=== PATIENT | male | born 1955 ===

== ENCOUNTER 2017-08-05 13:23 | Emergency (ER) | payer OTHER ==
[2017-08-05 14:53] LABS: ABS Basophils 0 10^3/ul (0-0.2); ABS Eosinophils 0.1 10^3/ul (0-0.6); ABS Lymphocytes 2.6 10^3/ul (1.0-4.8); ABS Monocytes 0.6 10^3/ul (0-0.8); ABS Neutrophils 2.3 10^3/ul (1.5-7.7); ABS Nucleated RBC 0 10^3/ul; Eosinophil % 1.4 % (0-6); Hematocrit 43 % (42-52); Hemoglobin 14.3 g/dl (14.0-18.0); Lymphocyte % 46.3 % (25-47); Mean Corpuscular HGB Conc 33 g/dl (31-36); Mean Corpuscular Hemoglobin 31 pg (27-31); Mean Corpuscular Volume 92 fL (80-94); Mean Platelet Volume 8.2 um3 (7.4-10.4); Nucleated Red Blood Cells % 0.3; Platelet Count 226 10^3/ul (150-450); Red Blood Count 4.67 10^6/ul (4.0-5.4); Red Cell Distribution Width 14 % (10.5-15); White Blood Count 5.6 10^3/ul (3.5-10.8)
[2017-08-05 15:14] LABS: INR 0.92 (0.77-1.02)
[2017-08-05 15:34] LABS: EGFR Non-African American 83.4 (>60)
[2017-08-05 16:22] VITALS: BP 188/92
--- NOTE | 2017-08-05 16:26 | ED ---
Robin Echeverria Angela, scribed for Adam Ruiz on 08/05/17 at 1621 . Hypertension - HPI Summary HPI Summary: This pt is a 62 y/o male presenting to [facility] via EMS from [facility] for EKG changes and high blood pressure. Pt reports he gets his daily check up at around lunch time. Today he was noticed to have elevated blood pressure and EKG changes. Pt [facility]. Denies chest pain, headache, SOB, or any other complaints. PMHx includes IA, DM, HTN. Pt is currently on Lisinopril and another antihypertensive medication (unable to recall the name). He reports he has not taken his antihypertensive medication today. Pt states he had EKG and stress tests done at either [place] or [facility]. He is a former cocaine user. - History of Current Complaint Chief Complaint: EDHypertension Stated Complaint: HIGH BP Time Seen by Provider: 08/05/17 13:30 Hx Obtained From: Patient Onset/Duration: Started Hours Ago, Still Present Timing: Lasting Days Aggravating Factor(s): Nothing Alleviating Factor(s): Nothing Associated Signs & Symptoms: Negative - Allergies/Home Medications Home Medications: Home Medications Aspirin EC TAB* [Ecotrin EC Low Dose 81 MG*] 81 mg PO DAILY 08/05/17 [History Confirmed 08/05/17] Atorvastatin* [Lipitor*] 10 mg PO BEDTIME 08/05/17 [History Confirmed 08/05/17] Enalapril TAB* [Vasotec TAB*] 10 mg PO DAILY 08/05/17 [History Confirmed ] Insulin GLARGINE(*) [Lantus(*)] 33 units SUBCUT QPM 08/05/17 [History Confirmed 08/05/17] Sertraline* [Zoloft*] 25 mg PO QPM 08/05/17 [History Confirmed 08/05/17] Tamsulosin CAP* [Flomax CAP*] 0.4 mg PO DAILY 08/05/17 [History Confirmed ] amLODIPine TAB* [Norvasc 5 mg TAB*] 10 mg PO DAILY 08/05/17 [History Confirmed 08/05/17] metFORMIN* [Glucophage 500 MG TAB *] 500 mg PO BID 08/05/17 [History Confirmed 08/05/17] PMH/Surg Hx/FS Hx/Imm Hx Endocrine/Hematology History: Reports: Hx Diabetes Cardiovascular History: Reports: Hx Hypertension, Hx Myocardial Infarction Infectious Disease History: No Infectious Disease History: Reports: Hx Hepatitis - B and C Denies: Traveled Outside the [place] in Last 30 Days - Family History Known Family History: Negative: Blood Disorder - Social History Alcohol Use: None Alcohol Amount: Stopped drinking May Substance Use Type: Reports: Cocaine Substance Use Comment - Amount & Last Used: May Smoking Status (MU): Light Every Day Tobacco Smoker Review of Systems Negative: Fever, Chills Eyes: Negative ENT: Negative Cardiovascular: Other - hypertension Negative: Chest Pain Negative: Shortness Of Breath Negative: Abdominal Pain Genitourinary: Negative Musculoskeletal: Negative Skin: Negative Negative: Headache All Other Systems Reviewed And Are Negative: Yes Physical Exam - Summary Physical Exam Summary: Appearance: Well appearing, no pain distress Skin: warm, dry, reflects adequate perfusion Head/face: normal Eyes: EOMI, HELENA ENT: normal Neck: supple, nontender Respiratory: CTA, breath sounds present Cardiovascular: RRR, pulses symmetrical Abdomen: nontender, soft Bowel: present Musculoskeletal: normal, strength/ROM intact Neuro: normal, sensory motor intact, A&Ox3 Triage Information Reviewed: Yes Vital Signs On Initial Exam: Initial Vitals Temp Pulse Resp BP Pulse Ox 98.7 F 55 16 167/85 97 08/05/17 13:39 08/05/17 13:39 08/05/17 13:39 08/05/17 13:39 08/05/17 13:39 Vital Signs Reviewed: Yes Diagnostics - Vital Signs Vital Signs Temp Pulse Resp BP Pulse Ox 08/05/17 14:20 22 191/104 08/05/17 14:00 16 08/05/17 13:49 16 173/82 08/05/17 13:39 98.7 F 55 16 167/85 97 - Laboratory Lab Results: Lab Results 08/05/17 08/05/17 08/05/17 Range/Units 14:43 14:43 14:43 WBC 5.6 (3.5-10.8) 10^3/ul RBC 4.67 (4.0-5.4) 10^6/ul Hgb 14.3 (14.0-18.0) g/dl Hct 43 (42-52) % MCV 92 (80-94) fL MCH 31 (27-31) pg MCHC 33 (31-36) g/dl RDW 14 (10.5-15) % Plt Count 226 (150-450) 10^3/ul MPV 8.2 (7.4-10.4) um3 Neut % (Auto) 41.3 (38-83) % Lymph % (Auto) 46.3 (25-47) % [place] % (Auto) 10.4 H (0-7) % Eos % (Auto) 1.4 (0-6) % Baso % (Auto) 0.6 (0-2) % Absolute Neuts (auto) 2.3 (1.5-7.7) 10^3/ul Absolute Lymphs (auto) 2.6 (1.0-4.8) 10^3/ul Absolute Monos (auto) 0.6 (0-0.8) 10^3/ul Absolute Eos (auto) 0.1 (0-0.6) 10^3/ul Absolute Basos (auto) 0 (0-0.2) 10^3/ul Absolute Nucleated RBC 0 10^3/ul Nucleated RBC % 0.3 INR (Anticoag Therapy) (0.77-1.02) APTT (26.0-36.3) seconds Sodium 138 L (139-145) mmol/L Potassium 3.7 (3.5-5.0) mmol/L Chloride 104 (101-111) mmol/L Carbon Dioxide 27 (22-32) mmol/L Anion Gap 7 (2-11) mmol/L BUN 18 (6-24) mg/dL Creatinine 0.92 (0.67-1.17) mg/dL Est GFR ( Amer) 107.2 (>60) Est GFR (Non-Af Amer) 83.4 (>60) BUN/Creatinine Ratio 19.6 (8-20) Glucose 110 H (70-100) mg/dL Lactic Acid 1.1 (0.5-2.0) mmol/L Calcium 9.9 (8.6-10.3) mg/dL Total Bilirubin 0.50 (0.2-1.0) mg/dL AST 32 (13-39) U/L ALT 35 (7-52) U/L Alkaline Phosphatase 85 (34-104) U/L Troponin I 0.01 (<0.04) ng/mL Total Protein 7.3 (6.4-8.9) g/dL Albumin 3.9 (3.2-5.2) g/dL Globulin 3.4 (2-4) g/dL Albumin/Globulin Ratio 1.1 (1-3) 04//18 Range/Units 14:43 WBC (3.5-10.8) 10^3/ul RBC (4.0-5.4) 10^6/ul Hgb (14.0-18.0) g/dl Hct (42-52) % MCV (80-94) fL MCH (27-31) pg MCHC (31-36) g/dl RDW (10.5-15) % Plt Count (150-450) 10^3/ul MPV (7.4-10.4) um3 Neut % (Auto) (38-83) % Lymph % (Auto) (25-47) % [place] % (Auto) (0-7) % Eos % (Auto) (0-6) % Baso % (Auto) (0-2) % Absolute Neuts (auto) (1.5-7.7) 10^3/ul Absolute Lymphs (auto) (1.0-4.8) 10^3/ul Absolute Monos (auto) (0-0.8) 10^3/ul Absolute Eos (auto) (0-0.6) 10^3/ul Absolute Basos (auto) (0-0.2) 10^3/ul Absolute Nucleated RBC 10^3/ul Nucleated RBC % INR (Anticoag Therapy) 0.92 (0.77-1.02) APTT 37.4 H (26.0-36.3) seconds Sodium (139-145) mmol/L Potassium (3.5-5.0) mmol/L Chloride (101-111) mmol/L Carbon Dioxide (22-32) mmol/L Anion Gap (2-11) mmol/L BUN (6-24) mg/dL Creatinine (0.67-1.17) mg/dL Est GFR ( Amer) (>60) Est GFR (Non-Af Amer) (>60) BUN/Creatinine Ratio (8-20) Glucose (70-100) mg/dL Lactic Acid (0.5-2.0) mmol/L Calcium (8.6-10.3) mg/dL Total Bilirubin (0.2-1.0) mg/dL AST (13-39) U/L ALT (7-52) U/L Alkaline Phosphatase (34-104) U/L Troponin I (<0.04) ng/mL Total Protein (6.4-8.9) g/dL Albumin (3.2-5.2) g/dL Globulin (2-4) g/dL Albumin/Globulin Ratio (1-3) Result Diagrams: 08/05/17 14:43 08/05/17 14:43 Lab Statement: Any lab studies that have been ordered have been reviewed, and results considered in the medical decision making process. - EKG 1425 Cardiac Rate: Bradycardia - at 51 bpm EKG Rhythm: Sinus Bradycardia EKG Interpretation: ST-T wave changes EKG Comparison: Other - no prior to compare Hypertension Course/Dx - Course Assessment/Plan: Pt is a 62 y/o male presenting to [facility] via EMS from [facility] for EKG changes and high blood pressure today. He denies any complaints, he is asymptomatic. Blood work and EKG were obtained. I discussed pt care with Dr. Miramontes, [facility], who recommends admission and a stress test. Pt refused admission and states he does not want to stay. He would like to be discharged and have an outpatient stress test instead. - Diagnoses Differential Diagnosis/HQI PQRI: Angina, Hypertension, Hypertensive Urgency Provider Diagnoses: Hypertension, Abnormal EKG Discharge - Sign-Out/Discharge Documenting (check all that apply): Discharge/Admit/Transfer - discharge to home - Discharge Plan Condition: Stable Disposition: HOME Patient Education Materials: Hypertension (ED) Referrals: Margot Tariq [Primary Care Provider] - Additional Instructions: Please follow up with your [facility] for an outpatient stress test. Follow up with your primary care provider in 3 days. RETURN TO THE ED FOR ANY WORSENING SYMPTOMS. - Billing Disposition and Condition Condition: STABLE Disposition: HOME The documentation as recorded by the Robin salomon Angela accurately reflects the service I personally performed and the decisions made by , Adam Ruiz.
== END 2017-08-05 16:20 | disposition home or self-care (01) ==
LOC: ED 13:23
DX: I10 Essential (primary) hypertension (principal); R94.31 Abnormal electrocardiogram [ECG] [EKG]; R00.1 Bradycardia, unspecified; E11.9 Type 2 diabetes mellitus without complications; Z79.4 Long term (current) use of insulin; Z79.84 Long term (current) use of oral hypoglycemic drugs; I25.2 Old myocardial infarction; F17.210 Nicotine dependence, cigarettes, uncomplicated
CPT/HCPCS: 36415; 80053; 83605; 84484; 85025; 85610; 85730; 93005; 99283